=== PATIENT | male | born 1995 | race Caucasian/White ===

== ENCOUNTER 2022-09-15 09:03 | Emergency (ER) | payer OTHER ==
[~2022-09-15] VITALS: Ht 180.3 cm; Wt 93.7 kg
[2022-09-15] MEDS ORDERED: DICYCLOMINE HCL20 MG PO (10:20)
[2022-09-15 10:45] VITALS: BP 125/71
== END 2022-09-15 10:45 | disposition home or self-care (01) ==
LOC: ED 09:03
DX: R10.11 Right upper quadrant pain (principal)
CPT/HCPCS: 36415; 76705; 80053; 81003; 83690; 85025; 99284 25